=== PATIENT | female | born 1955 | race Caucasian/White ===

== ENCOUNTER 2024-03-19 01:33 | Emergency (ER) | payer MEDICARE, OTHER ==
[2024-03-19 01:44] VITALS: BP 157/89; PULSE 83; RESP 22; TEMP 97.4; O2SAT 98
[2024-03-19] MEDS ORDERED: NS 1000ML 1,000 ML ONE (02:01)
[2024-03-19] MEDS ORDERED: SERT50TA PO (02:01)
[2024-03-19] MEDS ORDERED: MONT-38 PO (02:01)
[2024-03-19] MEDS ORDERED: TIRZ12.5 SUBCUT (02:01)
[2024-03-19] MEDS ORDERED: LEVO50TA6 PO (02:01)
[2024-03-19] MEDS ORDERED: ALBU1.25 NEB (02:01)
[2024-03-19] MEDS ORDERED: ATIVAN ONE (02:01)
[2024-03-19] MEDS ORDERED: ZOFRAN ONE (02:01)
[2024-03-19] MEDS ORDERED: TORADOL ONE (02:01)
[2024-03-19] MEDS ORDERED: CIPRO 400MG/200ML 200 ML IV ONE (02:19)
[2024-03-19] MEDS: ZOFRAN IV STA (02:20)
[2024-03-19] MEDS: NS 1000ML 1,000 ML IV ONE (02:20)
[2024-03-19] MEDS: TORADOL IV STA (02:20)
[2024-03-19] MEDS: ATIVAN IV STA (02:20)
[2024-03-19] MEDS: CIPRO 400MG/200ML 200 ML IV STA (02:21)
[2024-03-19] MEDS: HYOSCYAMINE SULFATE PO STA (02:25)
[2024-03-19 02:26] LABS: BASOPHIL # 0.1 10^3/uL (0.0-0.1); BASOPHIL % 0.6 % (0.1-1.2); EOSINOPHIL # 0.1 10^3/uL (0.0-0.2); EOSINOPHIL % 0.8 % (0.0-5.0); HEMATOCRIT(ML) 36.1 % (36.0-46.0); HEMOGLOBIN 11.8 g/dL (12.0-15.0); LYMPHOCYTES # 1.79 10^3/uL1 (1.0-4.8); MEAN CORP HGB 29.9 pg (26-34); MEAN CORP HGB CONCENTRATION 32.7 g/dL (33-36.5); MEAN CORP VOLUME 91.6 fL (78-100); MONOCYTES # 0.7 10^3/uL (0.3-0.8); NEUTROPHIL # 5.9 10^3/uL (1.8-7.7); NEUTROPHILS % 69.5 % (41.0-85.0); PLATELET COUNT 322 10^3/uL (150-400); RED BLOOD CELL 3.94 10^6/uL (4.00-5.20); RED CELL DISTRIBUTION WIDTH 12.9 % (11.5-14.5); WHITE BLOOD CELL 8.5 10^3/uL (4.5-11.0)
[2024-03-19 02:28] LABS: +ADD MANUAL DIFF(NO CHRG) NO
[2024-03-19 02:39] LABS: ALBUMIN(ML) 3.3 g/dL (3.4-5.0); ANION GAP 13.9; BUN/CREATININE RATIO 18.18 (10.0-20.0); CALCIUM 9.4 mg/dL (8.4-10.5); CARBON DIOXIDE 26.6 mmol/L (20.0-32); CREATININE SERUM 1.54 mg/dL (0.59-1.40); EST GFR, NON-AA 33.4 (>/=60); POTASSIUM 3.5 mmol/L (3.6-5.2)
[2024-03-19 02:45] VITALS: BP 144/75; PULSE 80; RESP 22; TEMP 97.4; O2SAT 98
[2024-03-19] MEDS ORDERED: HYOS0.1268 SL (02:46)
[2024-03-19] MEDS ORDERED: DICL50TA4 PO (02:46)
[2024-03-19] MEDS ORDERED: ONDA-226 PO (02:46)
[2024-03-19 02:47] LABS: BILIRUBIN,URINE NEGATIVE (NEGATIVE); LEUKOCYTE ESTERASE ,URINE TRACE (NEGATIVE); NITRATE,URINE NEGATIVE (NEGATIVE); PH,URINE 6.5 (4.5-8.0); UROBILINOGEN,URINE 0.2 E.U./dL (0.2)
[2024-03-19 02:49] LABS: APPEARANCE,URINE CLOUDY; UA COLOR RED
[2024-03-19 03:15] VITALS: BP 147/75; PULSE 83; RESP 22; TEMP 97.4; O2SAT 98
== END 2024-03-19 03:18 | disposition home or self-care (01) ==
LOC: ER 01:33
DX: R10.9 Unspecified abdominal pain (principal); E03.9 Hypothyroidism, unspecified; E11.9 Type 2 diabetes mellitus without complications; J45.909 Unspecified asthma, uncomplicated; Z88.0 Allergy status to penicillin; Z88.5 Allergy status to narcotic agent
CPT/HCPCS: 99284; 96365; 96375; 87086; 80053; 85025; 36415; 81001; 83690; J1885; J7030; J0744; J2060; J2405